=== PATIENT | female | born 1985 ===

== ENCOUNTER 2022-03-02 17:34 | Outpatient (REF) | payer BC, SELFPAY ==
[2022-03-02 16:00] LABS: TSH (W/Ref FT4) 2.65 uIU/mL (0.36-3.74)
[2022-03-10 14:44] LABS: Testosterone, Free 0.69 ng/dL (<0.13-1.03); Testosterone, Total 26 ng/dL (8-60)
== END 2022-03-02 17:35 | disposition home or self-care (01) ==
LOC: NCHCN 17:34
PROVIDERS: Visit Provider Family Medicine
DX: R63.5 Abnormal weight gain (principal); L68.0 Hirsutism
CPT/HCPCS: 84402; 84403; 84443

== ENCOUNTER 2024-03-19 18:13 | Outpatient (REF) | payer OTHER, SELFPAY ==
--- OUTSIDE RECORDS SUMMARY | 2024-03-19 18:17 | XMS_ITS | Encounter Summary ---
[place] [address] Care Team Providers Care Wirer Helper Name Role Phone None Primary Care Provider Unavailabl e Reason for Referral * Diagnostic Test (Routine) - Closed Specialty Diagnoses / Procedures Referred By Contac t Referred To Contact Radiology Diagnoses Ganglioglioma of brain Procedures MRI Brain wwo Contrast (Generic) Valerie Junior MD [facility] [address] [place] [address] Referral ID Status Reason Start Date Expiration Date V isits Requested Visits Authorized [id number] Closed Specialty Service Requested 06/23/2022 12/25/2023 1 1 Reason for Visit * Consultation (Routine) - Closed Specialty Diagnoses / Procedures Referred By Contac t Referred To Contact Neurology Diagnoses Seizure disorder Ganglioglioma Francheska Reich MD [address] [place] [address] [facility] [address] [place] [phone] Referral ID Status Reason Start Date Expiration Date V isits Requested Visits Authorized [id number] Closed Consult, Test & Treat 03/22/2022 03/22/2023 1 1 Encounter Details Date Type Department Care Team (Latest Contact Info) Description 06/23/2022 1:30 PM EDT Office [place] [address] Valerie Junior MD Ganglioglioma of brain; Vitamin D deficiency Social History Tobacco Use Types Packs/Day Years Used Date Smoking Tobacco: Never Smokeless Tobacco: Never Alcohol Use Standard Drinks/Week Comments Yes 0 (1 standard drink = 0.6 oz pur e alcohol) occasional Sex and Gender Information Value Date Recorded Sex Assigned at Not on file Gender Identity Not on file Sexual Orientation Not on file documented as of this encounter Last Filed Vital Signs Vital Sign Reading Time Taken Comments Blood Pressure 129/80 06/23/2022 1:19 PM EDT Pulse 86 06/23/2022 1:19 PM EDT Temperature - - Respiratory Rate - - Oxygen Saturation - - Inhaled Oxygen Concentration - - Weight 106.6 kg (235 lb) 06/23/2022 1:19 PM EDT Height 162.6 cm (5' 4) 06/23/2022 1:19 PM EDT Body Mass Index 40.34 06/23/2022 1:19 PM EDT documented in this encounter Patient Instructions * Patient Instructions* Valerie Junior MD - 06/23/2022 1:30 PM EDT Thank you for seeing us today. We will order an MRI of the brain to be scheduled. We will follow upwith you as needed. We recommend speaking with your therapist about cognitive behavioral therapy (CBT). We will check your vitamin D level. documented in this encounter Progress Notes * Valerie Junior MD - 06/23/2022 1:30 PM EDT Images from the original note were not included. DEPARTMENT OF NEUROLOGY Ep[facility]psy [facility] Patient Name: Isis Rankin PCP :None Date of Visit :06/23/2022 Chief Complaint/Reason for Visit: Re-establish care with [facility] given history of ganglioglioma which recurred s/p 2 resections and need for repeat surveillance imaging. History of Presenting Illness: Ms. Rankin is a 37 y.o. 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 Per chart review, she first was seen in [address] Sanders. She reportedly had no remote priest history of seizures, but in February 1997 (approx. age 12) she had several brief seizures andthen a more prolonged seizure 03/01/97, described as being preceded by a sensation of dizziness, josesito vu, and nausea while at a friend's house, with subsequent confusion as she tried to find the bathroom and trance-like behavior followed by eyelid twitching. All of these seizures were preceded by josesito vu aura +/- nausea and dizziness, and she continued to have aura without progression into altered/loss of awareness. She was first seen at [facility] and then [facility], initially started on PHT and later transitioned to CBZ. MRI showed abnormal signal in the right temporal lobe. She presented to [facility] for evaluation of possible surgical intervention for ?scar tissue vs. tumor. Based on signal abnormality in the inferior aspect of the right posterior temporal lobe, this was felt to be c/w low grade tumor (pilocytic astrocytoma vs DNT vs ganglioglioma). She was referred to Dr. Wisdom and the patient had stereotactic and volumetric resection of the right temporal lobe lesion 07/21/97 with one seizure on post-op day 1 felt to be 2/2 subtherapeutic CBZ level. 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 While there is a literature to suggest an entity called dysembryoplastic neuroepithelial tumor (DNT) without specific glioneuronal component, we view the findings as best fitting with the current WHO category of ganglioglioma. She continued to have several seizures post-operatively. LTG was added to CBZ, eventually LTG was replaced by GBP. She did well clinically for some time but in 1999 she had increased seizure frequency and MRI findings c/f recurrence of tumor. She was started on OXC in addition to CBZ (in lieu of GBP). She underwent repeat resective surgery 02/16/2000 with pathology c/w ganglioglioma. She was seizure free for many years (last in 1999, age 14) on CBZ monotherapy, eventually establishing with Dr. Kelly Soares. She was weaned off CBZ entirely in 2007. She continued to have surveillance MRI scans following her surgery in 2000 (yearly from [id number], also in 2008, 2010, and 2012). She was followed at [facility] until 03/2012 when she saw Wendy Ojeda APRN; at that time she was seizure free and had repeat MRI without concern for tumor recurrence. She has remained stable off of medication since that time. She does not endorse any events concerning for seizure recurrence. She had spent several years living in [facility] but [place] to work remotely from her parent's home. [facility] for repeat MRI. She does report that the process of going through recurrent surgery has brought her anxiety and symptoms consistent with PTSD. She is following with a therapist. She reports that she will be returning to [place] next year. Current antiepileptic medications: None Previous antiepileptic medications: PHT, CBZ, GBP, OXC Risk factors for epilepsy: There is no history of complications or developmental delay. There is no history of stroke, meningitis or encephalitis. There is history of recurrent right temporal ganglioglioma s/p resection x 2 (1997, 2000). There is no history of febrile seizures. There is no family history of epilepsy. There is no history of head trauma. Social History: Job: horticultural manager Living situation: Lives with parents currently Driving: Yes Tobacco: No Alcohol: 2-3 drinks daily (wine or gin & tonic) Recreational drugs: Marijuana rarely planning and contraceptive method: IUD Vitamin D/DEXA: History of low vitamin D Previous work up: # Brain imaging: MRI Brain 04/03/2012 Impression: No evidence of residual or recurrent neoplasm. MRI Brain 03/12/2010 IMPRESSION: No evidence for residual or recurrent disease. MRI Brain 12/16/2008 IMPRESSION: Stable examination without evidence of residual or recurrent tumor. The atrophy involving the right hippocampus is stable in appearance. MRI Brain 09/14/2005 SUMMARY: Status post right temporal tumor resection. There is no evidence of residual or recurrenttumor. MRI Brain 08/26/2004 IMPRESSION: Stable right temporal postsurgical change with no evidence of disease progression detected. MRI Brain 06/24/2003 IMPRESSION: 1) Postoperative change in the inferior right temporal lobe. 2) No evidence of residual or recurrent tumor. MRI Brain 06/11/2002 IMPRESSION: There is abnormal signal in the resection area in the right temporal lobe region seen well on the FLAIR sequence but I do not see any evidence of mass effect or enhancement. MRI Brain 06/08/2001 IMPRESSION: Post surgical changes in the right temporal bone and lobe with thin enhancement at thesurgical margins. Although the enhancement is nonspecific, it does not have the globular shape seenon the previous scans. MRI Brain 02/16/2000 CONCLUSION: Post-operative changes in the right temporal region. MRI Brain 02/16/2000 CONCLUSION: Pre-op MR with fiducials for craniotomy demonstrates probable residual tumor in the middle cranial fossa on the right side. MRI Brain 09/20/1999 IMPRESSION: No change from the prior study of . MRI Brain 12/11/1998 IMPRESSION: Possible interval increase in degree of enhancement since 08/25/98. This may also reflect technique and slice differences between examinations. For this reason, a four month follow-up evaluation is recommended. On the follow-up, 3 mm coronal T1 post-gadolinium enhanced images should be obtained to be utilized as a new baseline. MRI Brain 08/25/1998 IMPRESSION: Residual enhancement in the surgical bed as well as the most medial aspect of the resected area. This is worrisome for the recurrence of tumor in this region. MRI Brain 07/21/1997 CONCLUSION: Minimal residual enhancement in the surgical bed, may be secondary to surgical procedure. Less likely, this may represent a small amount of residual tumor. Repeat imaging will assist in sorting this out. I see no evidence of post-surgical complication at this time. MRI Brain 07/17/1997 CONCLUSION: Nonspecific area of enhancement with diffuse edema in the posterior-most right temporal lobe, suspicous for primary glial tumor. MRS was performed. The lesion is significantly smaller than the voxel size. Allowing for this, there is a slight decrease in MARCOS. The choline to creatine ratio is slightly reversed. Nonspecific MRS would be consistent with tumor, though certainly not a specific spectrum. # EEG: Routine EEG 08/14/2007 INTERPRETATION: This EEG is within normal limits during the awake and sleep states. No epileptiform activity, seizures or temporal slowing was seen. Please correlate clinically. Routine EEG 02/09/2007 INTERPRETATION: This EEG was slightly abnormal because intermitent slowing on the right.No clearlyepilpetic abnromalities were seen. Routine EEG 09/21/2006 INTERPRETATION: This EEG was mildly abnormal because of the intermittent right temporal slowing asmentioned above. Such a finding is consistent with her tumor resection. There were no epileptiform discharges noted on this study. If the clinical suspicion for epilepsy remains high, a repeat EEG with sleep deprivation may increase diagnostic sensitivity. Routine EEG 02/15/2004 INTERPRETATION: This EEG was abnormal because of the presence of bursts of polymorphic theta slowing in the right temporal region noted in awake and sleep states. No epileptic abnormalities were identified. The right temporal slowing would correlate with the prior tumor and resection in that area.While there was no convincing evidence for epilepsy on today's recording, this does not rule out the possiblity of a seizure disorder. Routine EEG 06/25/2003 INTERPRETATION: This EEG was mildly abnormal because of right temporal rhythmic sharp appearing theta and occasional sharp waves over the T4 region. Similar abnormalities have noted in her previous EEGs. Routine EEG 09/20/1999 Impression: This EEG is abnormal and it has some slowing over the right side and particularly the temporal leads. This is quite similar as to what has been noted on her previous EEGs. Routine EEG 07/25/1997 Impression: This EEG is abnormal due to persistent left temporal posterior delta slowing which is most likely due to the removal of the tumor. However, on several occasions also left temporal rhythmic theta activity noted which occasionally also spreads to the right. This finding is consistent with a lowered seizure threshold. No clinical signs were reported throughout the recording. No definitespike wave spike discharges were seen. # EMU admissions: None # Previous epilepsy-related neurosurgical interventions: Right temporal ganglioglioma resection 07/21/1997, repeat resective surgery d/t tumor recurrence 02/16/2000 Review of Systems: A 10-point review of systems was performed which was unremarkable except as mentioned in the HPI. Past Medical History: Patient Active Problem List Diagnosis Code ??? CIS - History of Depression ??? CIS - Seizure Disorder Past Surgical History: No past surgical history on file. Family History: No family history on file. Allergy: Allergies Allergen Reactions ??? Penicillins Hives Medications: Current Outpatient Medications on File Prior to Visit Medication Sig Dispense Refill ??? citalopram (CELEXA) 40 mg Tablet Take 1 tablet by mouth daily. FUTURE PRESCRIPTIONS MUST BE OBTAINED BY PATIENT'S PCP 30 tablet 2 ??? ALBUTEROL SULFATE (VENTOLIN HFA INHL) Inhale 2 puffs into the lungs as needed. ??? FLUTICASONE PROPIONATE (FLOVENT HFA INHL) Inhale 2 puffs into the lungs as needed. No current facility-administered medications on file prior to visit. Seizure Control: 09/30/2014 10:18 AM QEpilepsy Last seizure was: More than 1 year ago Were seizures disabling? Yes Social Factors: 09/30/2014 10:18 AM QEPILEPSY SOCIAL FACTORS Employment status: Yes - Refrigerator Repair Technician Currently driving: No Considering No Review of Systems: 09/30/2014 10:18 AM Review of systems 1. double vision Never 2. headache Never 3. rash Never 4. unsteadiness Never 5. upset stomach, nausea, vomiting Never 6. troubles with gums or teeth Never 7. weight loss or gain Never 8. tremors or shaking Never 9. restlessness Never 10. dizziness Never 11. tiredness/sleepiness Never 12. trouble sleeping Never 13. difficulties concentrating Never 14. feelings of aggression Never 15. depression Rarely 16. thoughts about ending your life Never 17. palpitations or chest pains Never 18. bladder problems Never 19. breathing problems Never Memory and concentration symptoms (QOLIE-31) 09/30/2014 10:19 AM QEPILEPSY QOLIE31 Memory problems None of the time Difficulty reasoning and solving problems None of the time Trouble remembering things people tell None of the time Trouble concentrating on reading None of the time Trouble concentrating on doing one thing at a time None of the time How much do your memory difficulties bother you? 1 - Not at all bothersome QOLIE-31 10 (low scores suggest severe memory symptoms) Depression Score (NDDI-E) 09/30/2014 10:19 AM QEPILEPSY DEPRESSION SCORE Depression Score 8 (scores >15 suggest Major Depression) Quality of Life 09/30/2014 10:19 AM QEPILEPSY QOL Quality of Life (10-Best Quality of Life; 0-Worst Quality of Life) 9 Review of systems: A 10-point review of system was checked and was negative except as mentioned above in the history of present illness. Physical Exam: Vitals: Temp: -- Heart Rate: -- Resp: -- BP: ()/() SpO2: -- Heart Rate from SpO2: -- Gen: awake, alert, NAD, cooperative with exam Respiratory: Normal work of breathing Extremities: Warm, well perfused Neurological exam: Mental state: Awake, alert, oriented to person, place and date. Fund of knowledge adequate. /3 recall. Speech: Normal Cranial nerves: I: Not tested II: Visual field testing notable for upper quadrant deficit OS. Pupils equal and reactive to light bilaterally. III, IV, : EOMs full, no pathological nystagmus. V: Facial sensation normal VII: Facial strength normal. VIII: Hearing normal to finger rub bilaterally. IX, X: Palate movement normal XI: Shoulder shrug normal XII: Tongue movement normal Motor: Strength: Normal 5/5 Fine motor: Normal Tone: Normal Abnormal movements: None Deep tendon reflexes: 2+ Sensation: Touch: Normal Cerebellar: Finger to nose: Normal Heel to chisholm: Normal Other: Not tested Gait: Normal, including stress maneuvers. Assessment / Plan: Ms. Rankin is a pleasant 37 y/o woman with history of recurrent right temporal ganglioglioma s/p resection x2 (1997, 2000 and symptomatic epilepsy that has subsequently resolved (off medication since 2007 without recurrence) who presents with concern for repeat surveillance MRI to assess for recurrence of tumor. Overall she has been quite stable with no clinical signs suggestive of return of epilepsy or other neurologic issues. Neurological exam unremarkable except for superior quadrantanopsia OS which she reports is sequelae of her surgery. Given prior recurrence of tumor it would be reasonable for repeat surveillance MRI since one has not been done since 2012. Will contact the patient with any abnormal result. If MRI is normal, she could likely be seen in 1-2 years for follow up although unclear what her living situation will be. Fornow, will have follow up as needed with potential plan to repeat MRI in ~ 2 years if normal. ShouldMRI show concern for recurrent tumor will place referral to neurosurgery and schedule sooner followup. Recommended the patient discuss doing cognitive behavioral therapy or referral to provider trained in CBT. Given prior history of vitamin D deficiency will check serum level as this can contribute to mood issues. Plan: - MRI Brain w/wout Contrast - If scan is normal, RTC PRN (tentatively ~ 2 years) or sooner if needed - If scan is abnormal, RTC [address] referral to neurosurgery - Check vitamin D level - Recommended discussing CBT with therapist for ?PTSD Valerie Junior MD 06/23/2022 CC: Francheska Reich MD A total of 45 minutes were spent [id number] with the patient obtaining history, performing exam, and in counseling. 15 minutes were spent on day of visit reviewing documentation and in documenting. documented in this encounter Miscellaneous Notes * Addendum Note - Valerie Junior MD - 06/23/2022 1:30 PM EDTAddended by: VALERIE JUNIOR on: 06/24/2022 07:46 PM Modules accepted: Orders documented in this encounter Plan of Treatment Not on file documented as of this encounter Results * MRI Brain wwo Contrast (Generic) (12/12/2022 8:55 AM EST) Anatomical Region Laterality Modality Head Magnetic Resonan ce Impressions 12/12/2022 2:58 PM EST Stable right temporal lobe postoperative changes. No residual recurrent tumor or intracranial metastasis. Thank you for letting us participate in the care of this patient. ??If you are a health care provider and have any questions regarding this report, please contact the number below. ??For patients who have questions please contact the health respiratory care practitioner that requested your imaging first. ? Electronically signed by: Kayce Bolton MD, [facility] ([phone]), at 12/12/2022 2:58 PM Narrative 12/12/2022 2:58 PM EST EXAMINATION: MRI BRAIN WWO CONTRAST (GENERIC) CLINICAL HISTORY: Brain/SAXOPHONE PLAYER neoplasm, monitor Patient with history of R temporal ganglioglioma s/p resection 1997 kun recurred in 2000, prior surveillance scans, re-evaluate for any recurrence TECHNIQUE: MRI of the brain was performed before and after the intravenous administration of 20cc Dotarem. COMPARISON: MRI brain April 03, 2012 FINDINGS: Postoperative changes of remote right temporal occipital craniotomy, as on prior examination. No significant change in right inferior temporal lobe resection cavity, are likely postoperative encephalomalacia of the lateral right superior temporal gyrus. New evidence of residual or recurrent tumor. There is punctate nonspecific right frontal subcortical white matter focus. Otherwise, no abnormal brain parenchymal signal, susceptibility, diffusion or enhancement. No abnormal leptomeningeal enhancement. No midline shift, mass effect, hydrocephalus or extra-axial collection. Expected intracranial vascular flow voids are preserved. Cerebral aqueduct, foramen magnum and basilar cisterns are patent. Pituitary gland is normal. No aggressive osseous lesions. Mild bilateral ethmoid and right maxillary sinus mucosal thickening left maxillary sinus mucus retention cyst. There is moderate right mastoid fluid. Procedure Note Kayce Bolton MD - 12/12/2022 EXAMINATION: MRI BRAIN WWO CONTRAST (GENERIC) CLINICAL HISTORY: Brain/SAXOPHONE PLAYER neoplasm, monitor Patient with history of R temporal ganglioglioma s/p resection 1997 tharecurred in 2000, prior surveillance scans, re-evaluate for any recurrence TECHNIQUE: MRI of the brain was performed before and after the intravenousadministration of 20cc Dotarem. COMPARISON: MRI brain April 03, 2012 FINDINGS: Postoperative changes of remote right temporal occipital craniotomy, as onprior examination. No significant change in right inferior temporal loberesection cavity, are likely postoperative encephalomalacia of the lateral rightsuperior temporal gyrus. New evidence of residual or recurrent tumor. There is punctate nonspecific right frontal subcortical white matterfocus. Otherwise, no abnormal brain parenchymal signal, susceptibility, diffusionor enhancement. No abnormal leptomeningeal enhancement. No midline shift,mass effect, hydrocephalus or extra-axial collection. Expected intracranial vascular flow voids are preserved. Cerebralaqueduct, foramen magnum and basilar cisterns are patent. Pituitary gland isnormal. No aggressive osseous lesions. Mild bilateral ethmoid and right maxillarysinus mucosal thickening left maxillary sinus mucus retention cyst. There ismoderate right mastoid fluid. IMPRESSION Stable right temporal lobe postoperative changes. No residual recurrenttumor or intracranial metastasis. Thank you for letting us participate in the care of this patient. If youare a health care provider and have any questions regarding this report,please contact the number below. For patients who have questions please contactthe health respiratory care practitioner that requested your imaging first. 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
--- OUTSIDE RECORDS SUMMARY | 2024-03-19 18:17 | XMS_ITS | Encounter Summary ---
[place] [address] Care Team Providers Care Manager Field Name Role Phone None Primary Care Provider Unavailabl e Encounter Details Date Type Department Care Team (Latest Contact Info) Description 06/23/2022 Travel Social History Tobacco Use Types Packs/Day Years Used Date Smoking Tobacco: Never Smokeless Tobacco: Never Alcohol Use Standard Drinks/Week Comments Yes 0 (1 standard drink = 0.6 oz pur e alcohol) occasional Sex and Gender Information Value Date Recorded Sex Assigned at Not on file Gender Identity Not on file Sexual Orientation Not on file documented as of this encounter Plan of Treatment Not on file documented as of this encounter Visit Diagnoses Not on filedocumented in this encounter Care Teams Manager Field Relationship Specialty Start Date End Date None None PCP - General 09/30/14 documented as of this encounter
--- OUTSIDE RECORDS SUMMARY | 2024-03-19 18:17 | XMS_ITS | Encounter Summary ---
[place] [address] Care Team Providers Care Casing Crew Name Role Phone None Primary Care Provider Unavailabl e Encounter Details Date Type Department Care Team (Latest Contact Info) Description 06/22/2022 Travel Social History Tobacco Use Types Packs/Day [...] on filedocumented in this encounter Care Teams Casing Crew Relationship Specialty Start Date End Date None None PCP - General 09/30/14 documented as of this encounter
--- OUTSIDE RECORDS SUMMARY | 2024-03-19 18:17 | XMS_ITS | Clinical Summary ---
Author Organization [facility] [place] [address] Care Team Providers Care Special Skills Officer Name Role Phone None Primary Care Provider Unavailabl e Allergies Active Allergy Reactions Criticality Noted Date Comments Penicillins Hives Medications Medication Sig Dispensed Refills Start Date End Date Status ALBUTEROL SULFATE (VENTOLIN HFA INHL) Inhale 2 puffs into the lungs as needed. Active FLUTICASONE PROPIONATE (FLOVENT HFA INHL) Inhale 2 puffs into the lungs as needed. Active sertraline (Zoloft) 100 mg tablet Take 200 mg by mouth daily. Active traZODone (Desyrel) 50 mg tablet Take 50 mg by mouth nightly. Active ARIPiprazole (Abilify) 2 mg tablet Take 1 mg by mouth daily. Active lisdexamfetamine (Vyvanse) 30 mg capsule Take 30 mg by mouth every morning. 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, S/P resection in 1997 and in 2000, now seizure free off medicine Social History Tobacco Use Types Packs/Day Years Used Date Smoking Tobacco: Never Smokeless Tobacco: Never Alcohol Use Standard Drinks/Week Comments Yes 0 (1 standard drink = 0.6 oz pur e alcohol) occasional Sex and Gender Information Value Date Recorded Sex Assigned at Not on file Gender Identity Not on file Sexual Orientation Not on file Last Filed Vital Signs Vital Sign Reading [...] Mass Index 40.34 06/23/2022 1:19 PM EDT Plan of Treatment Health Maintenance Due Date Last Done Comments HIV screen 04/23/2005 Hepatitis C Screening 04/23/2005 Lipid Screening 04/23/2005 Hepatitis B vaccine (0-59 yrs) (1) 04/23/2006 Tetanus/Diphtheria/Pertussis Vaccines (1 - Tdap) 04/23 HPV test 04/23/2017 PAP Smear 04/23/2017 Covid-19 Vaccine (1 - 2023- season) 2023 Influenza (Flu) vaccine (1 o f 1 - Influenza standard series) 10/08/2023 Care Teams Special Skills Officer Relationship Specialty Start Date End Date None None PCP - General 09/30/14
--- OUTSIDE RECORDS SUMMARY | 2024-03-19 18:17 | XMS_ITS | Encounter Summary ---
[place] [address] Care Team Providers Care Marketing Information Manager Name Role Phone None Primary Care Provider Unavailabl e Encounter Details Date Type Department Care Team (Latest Contact Info) Description 12/12/2022 Travel Social History Tobacco Use Types Packs/Day [...] on filedocumented in this encounter Care Teams Marketing Information Manager Relationship Specialty Start Date End Date None None PCP - General 09/30/14 documented as of this encounter
--- OUTSIDE RECORDS SUMMARY | 2024-03-19 18:17 | XMS_ITS | Encounter Summary ---
[place] [address] Care Team Providers Care Materials Planner Name Role Phone None Primary Care Provider Unavailabl e Reason for Referral * Consultation (Routine) - Closed Specialty Diagnoses / Procedures Referred By Contac t Referred To Contact Neurology Diagnoses Seizure disorder Ganglioglioma Francheska Reich MD [address] [place] [address] [facility] [address] [place] [phone] Referral ID Status Reason Start Date Expiration Date V isits Requested Visits Authorized [id number] Closed Consult, Test & Treat 03/22/2022 03/22/2023 1 1 Encounter Details Date Type Department Care Team (Late st Contact Info) Description 03/22/2022 Transcribe Orders eDH Incoming Referrals [phone] Francheska Reich MD [address] [place] [address] Seizure disorder; Ganglioglioma Social History Tobacco Use Types Packs/Day Years Used Date Smoking Tobacco: Never Smokeless Tobacco: Never Alcohol Use Standard Drinks/Week Comments Yes 0 (1 standard drink = 0.6 oz pur e alcohol) occasional Sex and Gender Information Value Date Recorded Sex Assigned at Not on file Gender Identity Not on file Sexual Orientation Not on file documented as of this encounter Plan of Treatment Scheduled Referrals Name Type Priority Associated Diagnoses Orde r Schedule Referral to Neurology Outpatient Referral Routine Seizure disorder Ganglioglioma Ordered: 03/22/2022 documented as of this encounter Visit Diagnoses Diagnosis Seizure disorder Unspecified epilepsy without mention of intractable epilepsy Ganglioglioma Neoplasm of uncertain behavior, site unspecified documented in this encounter Care Teams Materials Planner Relationship Specialty Start Date End Date None None PCP - General 09/30/14 documented as of this encounter
--- OUTSIDE RECORDS SUMMARY | 2024-03-19 18:17 | XMS_ITS | Encounter Summary ---
[place] [address] Care Team Providers Care Glue Maker Bone Name Role Phone None Primary Care Provider Unavailabl e Reason for Referral * Diagnostic Test (Routine) - Closed Specialty Diagnoses / Procedures Referred By Contac t Referred To Contact Radiology Diagnoses Ganglioglioma of brain Procedures MRI Brain wwo Contrast (Generic) Jose Field MD [facility] NEUROLOGY [place], [place] [id number] [place] [phone] Referral ID Status Reason Start Date Expiration Date V isits Requested Visits Authorized [id number] Closed Specialty Service Requested 06/23/2022 12/25/2023 1 1 Reason for Visit * Diagnostic Test (Routine) - Closed Specialty Diagnoses / Procedures Referred By Contac t Referred To Contact Radiology Diagnoses Ganglioglioma of brain Procedures MRI Brain wwo Contrast (Generic) Jose Field MD [facility] [place] [address] [place] [address] [place] [address] Referral ID Status Reason Start Date Expiration Date V isits Requested Visits Authorized [id number] Closed Specialty Service Requested 06/23/2022 12/25/2023 1 1 Encounter Details Date Type Department Care Team (Latest Contact Info) Description 12/12/2022 7:46 AM EST - 12/12/2022 11:59 PM EST Hospital [place] [address] Jose Field MD Ganglioglioma of brain Discharge Disposition: Home Social History Tobacco Use Types Packs/Day Years Used Date Smoking Tobacco: Never Smokeless Tobacco: Never Alcohol Use Standard Drinks/Week Comments Yes 0 (1 standard drink = 0.6 oz pur e alcohol) occasional Sex and Gender Information Value Date Recorded Sex Assigned at Not on file Gender Identity Not on file Sexual Orientation Not on file documented as of this encounter Medications at Time of Discharge Medication Sig Dispensed Refills Start Date End Date sertraline (Zoloft) 100 mg tablet Take 200 mg by mouth daily. traZODone (Desyrel) 50 mg tablet Take 50 mg by mouth nightly. ARIPiprazole (Abilify) 2 mg tablet Take 1 mg by mouth daily. lisdexamfetamine (Vyvanse) 30 mg capsule Take 30 mg by mouth every morning. ALBUTEROL SULFATE (VENTOLIN HFA INHL) Inhale 2 puffs into the lungs as needed. FLUTICASONE PROPIONATE (FLOVENT HFA INHL) Inhale 2 puffs into the lungs as needed. documented as of this encounter Plan of Treatment Not on file documented as of this encounter Procedures Procedure Name Priority Date/Time Associated Diagnosis Comments MRI BRAIN WWO CONTRAST (GENERIC) Routine 12/12/2022 8:55 AM EST Ganglioglioma of brain documented in this encounter Results * MRI Brain wwo [...] who have questions please contact the health rn managed care that requested your imaging first. ? Electronically signed by: Kayce Bolton MD, [facility] ([phone]), at 12/12/2022 2:58 PM Narrative 12/12/2022 2:58 PM EST EXAMINATION: MRI BRAIN WWO CONTRAST (GENERIC) CLINICAL HISTORY: Brain/OIL WELL DIRECTIONAL SURVEYOR neoplasm, monitor Patient with history of R [...] MRI BRAIN WWO CONTRAST (GENERIC) CLINICAL HISTORY: Brain/OIL WELL DIRECTIONAL SURVEYOR neoplasm, monitor Patient with history of R [...] patients who have questions please contactthe health rn managed care that requested your imaging first. 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
--- OUTSIDE RECORDS SUMMARY | 2024-03-19 18:17 | XMS_ITS | Encounter Summary ---
[place] [address] Care Team Providers Care Ag Equipment Field Service Technician Name Role Phone None Primary Care Provider Unavailabl e Reason for Visit * Reason Onset Date Comments Results 01/11/2023 Encounter Details Date Type Department Care Team (Late st Contact Info) Description 01/11/2023 [place] [phone] Unknown None Results Social History Tobacco Use Types Packs/Day Years Used Date Smoking Tobacco: Never Smokeless Tobacco: Never Alcohol Use Standard Drinks/Week Comments Yes 0 (1 standard drink = 0.6 oz pur e alcohol) occasional Sex and Gender Information Value Date Recorded Sex Assigned at Not on file Gender Identity Not on file Sexual Orientation Not on file documented as of this encounter Miscellaneous Notes * Telephone Encounter - Karina Freeman RN - 01/11/2023 2:38 PM EST Copied from [facility] #[id number]. Topic: Specialty Dept CRMs - Test Results >> Jan 11, 2023 1:56 PM Jose Alejandro Jeffers wrote: Test Results Request Specialist: Jose Field MD Relationship (if other than patient-full name): Isis Rankin Ordering Provider: Jose Field MD Type of Test: MRI BRAIN WWO Date of Test: 12/12/22 Where Was This Test Performed: [facility] [place] Patient stated, she has not received a phone call regarding her MRI results. Please call patient [phone] to discuss results. documented in this encounter Plan of Treatment Not on file documented as of this encounter Visit Diagnoses Not on filedocumented in this encounter Care Teams Ag Equipment Field Service Technician Relationship Specialty Start Date End Date None None PCP - General 09/30/14 documented as of this encounter
--- OUTSIDE RECORDS SUMMARY | 2024-03-19 18:17 | XMS_ITS | Encounter Summary ---
[place] [address] Care Team Providers Care Waiter/Waitress Club Name Role Phone None Primary Care Provider Unavailabl e Encounter Details Date Type Department Care Team (Late st Contact Info) Description 11/01/2022 [place] [address] Taylor Britton RN Social History Tobacco Use Types Packs/Day Years [...] encounter Miscellaneous Notes * Telephone Encounter - Taylor Britton RN - 11/01/2022 9:25 AM EDT TC to schedule the MRI (brain) that was ordered on 06/23/[address] Field. Pt connected with the MRI Dept to schedule imaging. documented in this encounter Plan of Treatment Not on file documented as of this encounter Visit Diagnoses Not on filedocumented in this encounter Care Teams Waiter/Waitress Club Relationship Specialty Start Date End Date None None PCP - General 09/30/14 documented as of this encounter
--- OUTSIDE RECORDS SUMMARY | 2024-03-19 18:18 | XMS_ITS | Encounter Summary ---
[place] [address] Care Team Providers Care Paper And Pulp Mill Operator Name Role Phone None Primary Care Provider Unavailabl e Reason for Visit * Reason Onset Date Comments Medication Refill 05/06/2015 Encounter Details Date Type Department Care Team (Late st Contact Info) Description 05/06/2015 [place] [address] Kelly Soares MD [facility] [place] [address] Medication Refill Social History Tobacco Use Types Packs/Day Years [...] encounter Miscellaneous Notes * Telephone Encounter - Olga Romero RN - 05/06/2015 1:02 PM EDT I phoned patient. rx was done in January but pt has changed pharmacies and [place] law doesn't allow rxtransfers between pharmacies. Pt still has not seen a psychiatrist. She states that she just got new insurance and will start looking now. Pt advised that pcp or psychiatrist should be filling her celexa for her. We will send rx to new pharmacy but pt instructed to actively search for psychiatrist per previous telephone note. Plan: as above and pt agrees with plan and verbalizes understanding. * Telephone Encounter - Kita Hernandez - 05/06/2015 12:15 PM EDT Name of Med: citalopram CELEXA Strength of Pills: 40mg tablet Dosing Directions: take 1 tablet by mouth daily 30 or 90 Day: 30 Pharmacy: [facility] Last Appointment: 09/30/2014 Next Appointment:none Is Patient out of Medication?: YES documented in this encounter Plan of Treatment Not on file documented as of this encounter Visit Diagnoses Not on filedocumented in this encounter Care Teams Paper And Pulp Mill Operator Relationship Specialty Start Date End Date None None PCP - General 09/30/14 documented as of this encounter
--- OUTSIDE RECORDS SUMMARY | 2024-03-19 18:18 | XMS_ITS | Encounter Summary ---
[place] [address] Care Team Providers Care General Practitioner Name Role Phone None Primary Care Provider Unavailabl e Reason for Visit * Reason Onset Date Comments Referral 03/22/2022 Neurology Encounter Details Date Type Department Care Team (Late st Contact Info) Description 03/22/2022 [place] [phone] Unknown None Referral (Neurology ) Social History Tobacco Use Types Packs/Day Years [...] encounter Miscellaneous Notes * Telephone Encounter - Stanley Denny - 03/22/2022 9:57 AM EST Patient calling in: Caller: Isis Rankin If not PT/Relation to PT: patient Best number to reach caller: [phone] Reason for the Call: - To check on the status of their referral: If not, what is the reason for their call: n/a Previous Neurology Information Questions: Has the patient seen another Neurologist: Yes If yes, when and where: 2014 [facility] Has the patient had any imaging done: Yes If yes, when and where: 2012 [facility] documented in this encounter Plan of Treatment Not on file documented as of this encounter Visit Diagnoses Not on filedocumented in this encounter Care Teams General Practitioner Relationship Specialty Start Date End Date None None PCP - General 09/30/14 documented as of this encounter
--- OUTSIDE RECORDS SUMMARY | 2024-03-19 18:18 | XMS_ITS | Encounter Summary ---
Author Organization [facility] [place] [address] Care Team Providers Care Retail Loan Originator Assistant Name Role Phone None Primary Care Provider Unavailabl e Reason for Visit * Reason Onset Date Comments Medication Refill 01/13/2015 Med Refill Cathy nge Encounter Details Date Type Department Care Team (Late st Contact Info) Description 01/13/2015 [place]phone [place] [address] Kelly Soares MD [facility] [place] [address] Medication Refill (Med Refill Change) Social History Tobacco Use Types Packs/Day Years [...] Telephone Encounter - Olga Romero RN - 01/14/2015 5:00 PM EST Per Wendy Ojeda VICTIM ADVOCATE: looks like this is what Dr. Soares wanted her to do. We can renew the 40mg and she should take it consistently. She should have her PCP do an EKG and she should look for a psychiatrist in [place] I phoned pt back and reviewed above per Wendy Ojeda. Pt doesn't have a PCP but states she will nowobtain one and have EKG done as soon as she can. She is also actively looking for psychiatrist. Newrx generated for provider review and signature. Plan: as above and pt agrees with plan and verbalizes understanding. * Telephone Encounter - Olga Romero RN - 01/14/2015 12:13 PM EST Per Wendy Ojeda APRN: looks like this is what Dr. Soares wanted her to do. We can renew the 40mg and she should take it consistently. She should have her PCP do an EKG and she should look for a psychiatrist in [place] I attempted to phone pt regarding above instruction per Wendy Ojeda APRN. There was no answer. Message left on voice mail to call back [phone]. * Telephone Encounter - Olga Romero RN - 01/13/2015 5:19 PM EST Last visit 09/30/14 Next visit 01/26/15 I phoned pt back. She had been taking celexa 60 mg daily. Her insurance will not pay for 3 - 20 mg capsules of celexa per day. She would need a 40 mg capsule and 20 mg capsule. She states that this has been a problem for a little while so has not consistently taken celexa every day but when she does take it is is 60 mg. I reviewed note from 09/30/[address] Soares which she recommends decreasing dose of celexa to 40 mg daily. She admits she is nervous to do this. She states in [place] a PCP can't prescribe celexa that she must see a psychiatrist. She has been instructed/encouraged during this call to actively look for a psychiatrist. She states Dr. Soares prescribed her the celexa for a year and wonders if the new rx can also be done for a year so she can get scheduled with a psychiatrist. She would like to know if the provider still recommends decreasing celexa to 40 mg daily as well. Assessment and Plan: - Epilepsy: no seizures and is off antiepileptic medications - Ganglioglioma: We will obtain another MRI scan and see whether there is recurrence of the ganglioglioma. If there is no change in the postoperative tissue then no further follow-up scans are necessary. - Depression: The patient is on Celexa for depression. She has been on that think 18 years old. Sheseems to do well on that. However she is still on high dose. The cardiac side effects of Celexa at higher doses were discussed with the patient. It was recommended that she decreases the dose to 40 mg a day. The patient wanted to attempt this. She wanted to follow up with a primary care physician in [facility]. Current Outpatient Prescriptions on File Prior to Visit Medication Sig Dispense Refill ??? citalopram (CELEXA) 20 mg Tablet Take 3 tablets by mouth daily. 90 tablet 11 ??? ALBUTEROL SULFATE (VENTOLIN HFA INHL) Inhale 2 puffs into the lungs as needed. ??? FLUTICASONE PROPIONATE (FLOVENT HFA INHL) Inhale 2 puffs into the lungs as needed. No current facility-administered medications on file prior to visit. Plan: I will forward to Wendy Ojeda for review/recommendation in absence of Dr. Soares. * Telephone Encounter - Cierra Baker - 01/13/2015 12:06 PM EST Patient called in stating her insurance company is requesting that the patient get prescribed the 20 mg Celexa for 1 year and the 40 mg Celexa for 1 year. Patient states her insurance company will not approve her for the 90 tablets a month for the 20 mg tablets. Patient would like a call back to clarify. documented in this encounter Plan of Treatment Not on file documented as of this encounter Visit Diagnoses Not on filedocumented in this encounter Care Teams Retail Loan Originator Assistant Relationship Specialty Start Date End Date None None PCP - General 09/30/14 documented as of this encounter
--- OUTSIDE RECORDS SUMMARY | 2024-03-19 18:18 | XMS_ITS | Encounter Summary ---
Author Organization [facility] [place] [address] Care Team Providers Care Product Development Worker Name Role Phone None Primary Care Provider Unavailabl e Reason for Visit * Reason Onset Date Comments Medication Refill 10/05/2015 Encounter Details Date Type Department Care Team (Late st Contact Info) Description 10/05/2015 [place] [address] Kelly Soares MD [facility] [address] Social History Tobacco Use Types Packs/Day Years [...] Telephone Encounter - Olga Romero RN - 10/05/2015 12:28 PM EDT I phoned and spoke with pt. She had rx transferred from [place] to [place] so she lost her last 2 refills. She states she will be seeing new PCP soon and will have them take over prescription but needs a rx in the mean time. New rx with 2 refills generated for provider review and signature. Note on rx indicates that pt will need to get future prescriptions from her PCP. Plan: as above and pt agrees with plan and verbalizes understanding. * Telephone Encounter - Jose G Shirley - 10/05/2015 10:46 AM EDT Patient stated that she transferred this medication to [place] from [place] she lost the last two refills. Patient stated that she has an upcoming appointment with her PCP. Name of Med: citalopram Strength of Pills: 40 mg Dosing Directions: Take 1 tablet by mouth daily. - Oral 30 or 90 Day: 30 Pharmacy: [facility] [address] [place] [address] Last Appointment: 09/30/14 Next Appointment: not scheduled. Is Patient out of Medication?: no documented in this encounter Plan of Treatment Not on file documented as of this encounter Visit Diagnoses Not on filedocumented in this encounter Care Teams Product Development Worker Relationship Specialty Start Date End Date None None PCP - General 09/30/14 documented as of this encounter
--- OUTSIDE RECORDS SUMMARY | 2024-03-19 18:18 | XMS_ITS | Encounter Summary ---
[place] [address] Care Team Providers Care Purchasing/Receiving Name Role Phone None Primary Care Provider Unavailabl e Reason for Visit * Reason Onset Date Comments Medication Refill 05/06/2015 Encounter Details Date Type Department Care Team (Late st Contact Info) Description 05/06/2015 [place] [address] Kelly Soares MD [facility] [place] [address] Social History Tobacco Use Types Packs/Day Years [...] on filedocumented in this encounter Care Teams Purchasing/Receiving Relationship Specialty Start Date End Date None None PCP - General 09/30/14 documented as of this encounter
--- OUTSIDE RECORDS SUMMARY | 2024-03-19 18:18 | XMS_ITS | Encounter Summary ---
[place] [address] Care Team Providers Care Forestry Support Specialist Name Role Phone None Primary Care Provider Unavailabl e Reason for Visit * Reason Onset Date Comments Medication Refill 01/14/2015 Encounter Details Date Type Department Care Team (Late st Contact Info) Description 01/14/2015 Ref[place] [address] Wendy Ojeda, ESL PROFESSOR Social History Tobacco Use Types Packs/Day Years [...] on filedocumented in this encounter Care Teams Forestry Support Specialist Relationship Specialty Start Date End Date None None PCP - General 09/30/14 documented as of this encounter
--- OUTSIDE RECORDS SUMMARY | 2024-03-19 18:18 | XMS_ITS | Encounter Summary ---
[place] [address] Care Team Providers Care Drywall Carrier Name Role Phone None Primary Care Provider Unavailabl e Reason for Visit * Reason Onset Date Comments Medication Refill 10/05/2015 Encounter Details Date Type Department Care Team (Late st Contact Info) Description 10/05/2015 [place] [address] Wendy Ojeda, WARP STARTER Social History Tobacco Use Types Packs/Day Years [...] on filedocumented in this encounter Care Teams Drywall Carrier Relationship Specialty Start Date End Date None None PCP - General 09/30/14 documented as of this encounter
--- OUTSIDE RECORDS SUMMARY | 2024-03-19 18:19 | XMS_ITS | Encounter Summary ---
[place] [address] Care Team Providers Care Rn Hematology Name Role Phone Olga Kramer MD Primary Care Provider [phone] Encounter Details Date Type Department Care Team (Late st Contact Info) Description 04/03/2012 2:30 PM EST - 04/03/2012 11:59 PM [facility] [place] [address] Ganglioglioma Social History Tobacco Use Types Packs/Day Years Used Date Smoking Tobacco: Never Smokeless Tobacco: Never Alcohol Use Standard Drinks/Week Comments Yes 6 (1 standard drink = 0.6 oz pur e alcohol) Sex and Gender Information Value Date Recorded Sex Assigned at Not on file Gender Identity Not on file Sexual Orientation Not on file documented as of this encounter Medications at Time of Discharge Medication Sig Dispensed Refills Start Date End Date ALBUTEROL SULFATE (VENTOLIN HFA INHL) Inhale 2 puffs into the lungs as needed. FLUTICASONE PROPIONATE (FLOVENT HFA INHL) Inhale 2 puffs into the lungs as needed. citalopram (CELEXA) 20 mg tablet Take 60 mg by mouth daily. 09/30/2014 documented as of this encounter Miscellaneous Notes * Miscellaneous - Provider, Judie - 04/30/2012 5:29 AM EDT documented in this encounter Plan of Treatment Not on file documented as of this encounter Procedures Procedure Name Priority Date/Time Associated Diagnosis Comments MRI BRAIN WWO CONTRAST (GENERIC) Routine 04/03/2012 3:12 PM EST Ganglioglioma documented in this encounter Results * MRI brain with/WO contrast (04/03/2012 3:12 PM EST) Anatomical Region Laterality Modality Head Magnetic Resonan ce 04/03/2012 3:12 PM EST Narrative 04/03/2012 6:27 PM EST Examination MR BRAIN W/WO CONTRAST Clinical History previous gangioglioma follow up GANGLIOGLIOMA Comparison MRI of brain of 03/12/2010. Technique MRI of the brain was performed both before and after the administration of 17 mL Magnevist. Findings The area of tissue loss and T2 prolongation in the right lateral and inferior temporal lobes shows no interval alteration. ??There is no new mass, abnormal enhancement, or signal abnormality. ??Ventricles and sulci show no change in size or configuration. ??Intracranial flow voids show no abnormality. ??There is persistent opacification of the maxillary sinuses and increased opacification of left ethmoid air cells and decreased opacification of the right frontal sinus. Impression 1. ??No evidence of residual or recurrent neoplasm. Procedure Note Car Godoy MD - 04/03/2012 Examination MR BRAIN W/WO CONTRAST Clinical History previous gangioglioma follow up GANGLIOGLIOMA Comparison MRI of brain of 03/12/2010. Technique MRI of the brain was performed both before and after the administration of17 mL Magnevist. Findings The area of tissue loss and T2 prolongation in the right lateral andinferior temporal lobes shows no interval alteration. There is no new mass,abnormal enhancement, or signal abnormality. Ventricles and sulci show no changein size or configuration. Intracranial flow voids show no abnormality.There is persistent opacification of the maxillary sinuses and increasedopacification of left ethmoid air cells and decreased opacification of the right frontal sinus. Impression 1. No evidence of residual or recurrent neoplasm. Kelly Soares MD IMG MRI ORDERABLES documented in this encounter Visit Diagnoses Diagnosis Ganglioglioma Neoplasm of uncertain behavior, site unspecified documented in this encounter Administered Medications Inactive Administered Medications - up to 3 most recent administrations Medication Order MAR Action Action Date Dose Rate Site gadopentetate dimeglumine (MAGNEVIST) injection 17 mL 17 mL (0.2 mL/kg/dose ? 83.9 kg Order-specific weight), Intravenous, ONCE PRN, Per Protocol, Starting on Mon04/03/12 at 0612, 1 dose, Until Mon04/03/12 at 1458 Given 04/03/2012 2:58 PM EST 17 mLs documented in this encounter Care Teams Rn Hematology Relationship Specialty Start Date End Date Olga Kramer MD PCP - General 12/29/09 09/29/14 documented as of this encounter
--- OUTSIDE RECORDS SUMMARY | 2024-03-19 18:19 | XMS_ITS | Encounter Summary ---
[place] [address] Care Team Providers Care Beta Tester Name Role Phone None Primary Care Provider Unavailabl e Encounter Details Date Type Department Care Team (Late st Contact Info) Description 09/30/2014 10:15 AM EDT [place] [id number] Kelly Soares MD [facility] [place] [address] Ganglioglioma Discharge Disposition: Home Social History Tobacco Use [...] Sign Reading Time Taken Comments Blood Pressure 121/78 09/30/2014 10:16 AM EDT Pulse 94 09/30/2014 10:16 AM EDT Temperature - - Respiratory Rate - - Oxygen Saturation - - Inhaled Oxygen Concentration - - Weight 102.1 kg (225 lb) 09/30/2014 10:16 AM EDT Height 165.1 cm (5' 5) 09/30/2014 10:16 AM EDT Body Mass Index 37.44 09/30/2014 10:16 AM EDT documented in this encounter Progress Notes * Kelly Soares MD - 09/30/2014 10:47 AM EDT 09/30/2014 [facility] COMPREHENSIVE EPILEPSY PROGRAM INITIAL CONSULTATION Patient name: Isis Rankin : 1985 Patient came to the office alone. Patient Care Team: None as PCP - General None as PCP - Regular Care Provider The patient was seen previously by me. 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 The patient is doing well, she has had no seizures and no complaints. She is still taking the Celexa, but had difficulties obtaining the prescription. She tolerates the 60 mg without difficulties. Living in [facility], works in [employer], home visiting in [place] right now. Previous Epilepsy diagnostic work up: MRI: last MRI 2012 without recurrence PMH: Past Medical History Diagnosis Date ??? 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 h/o epilepsy no seizures since > 5 years ??? Depression Current Meds: Medications 09/30/14 1018 Medication Sig Taking? ALBUTEROL SULFATE (VENTOLIN HFA INHL) Inhale 2 puffs into the lungs as needed. Yes FLUTICASONE PROPIONATE (FLOVENT HFA INHL) Inhale 2 puffs into the lungs as needed. Yes citalopram (CELEXA) 20 mg tablet Take 60 mg by mouth daily. Yes Allergies: Allergies Allergen Reactions ??? Penicillins Hives Social History: History Social History ??? Marital Status: Single Spouse Name: N/A Number of Children: N/A ??? Years of Education: N/A Occupational History ??? Not on file. Social History Main Topics ??? Smoking status: Never Smoker ??? Smokeless tobacco: Never Used ??? Alcohol Use: Yes Comment: occasional ??? Drug Use: No ??? Sexual Activity: Not on file Comment: deferred Other Topics Concern ??? Not on file Social History Narrative 2015: Lives in [facility], works in sales. Single. ROS and other subjective information: @Seizure Control: QEpilepsy 09/30/2014 Last seizure was: More than 1 year ago Were seizures disabling? Yes Social Factors: QEPILEPSY SOCIAL FACTORS 09/30/2014 Employment status: Yes - [employer] Currently driving: No Considering No Review of Systems: Review of systems 09/30/2014 1. double vision Never 2. headache Never [...] problems Never Memory and concentration symptoms (QOLIE-31) QEPILEPSY QOLIE31 09/30/2014 Memory problems None of the time Difficulty [...] suggest severe memory symptoms) Depression Score (NDDI-E) QEPILEPSY DEPRESSION SCORE 09/30/2014 Depression Score 8 (scores >15 suggest Major Depression) Quality of Life QEPILEPSY QOL 09/30/2014 Quality of Life (10-Best Quality of Life; 0-Worst Quality of Life) 9 Objective: Blood pressure 121/78, pulse 94, height 165.1 cm (5' 5), weight 102.059 kg (225 lb). Awake, alert, EOMI, no mouth lesions, no peripheral edema, no clear skin lesions Psychiatric: normal affect Gait and station: normal Romberg, normal gait, tandem gait intact, Assessment and Plan: - Epilepsy: no seizures [...] up with a primary care physician in [facility]. This note was created using voice recognition software. It was reviewed for major content. However,there may be multiple small discrepancies and errors due to the voice recognition aspects of the software. documented in this encounter Plan of Treatment Not on file documented as of this encounter Visit Diagnoses Diagnosis Ganglioglioma Neoplasm of uncertain behavior, site unspecified documented in this encounter Care Teams Beta Tester Relationship Specialty Start Date End Date None None PCP - General 09/30/14 documented as of this encounter
--- OUTSIDE RECORDS SUMMARY | 2024-03-19 18:19 | XMS_ITS | Encounter Summary ---
[place] [address] Care Team Providers Care Gas Plumber Name Role Phone None Primary Care Provider Unavailabl e Encounter Details Date Type Department Care Team (Late st Contact Info) Description 09/30/2014 [place] [address] Kita Hernandez Social History Tobacco Use Types Packs/Day Years [...] on filedocumented in this encounter Care Teams Gas Plumber Relationship Specialty Start Date End Date None None PCP - General 09/30/14 documented as of this encounter
--- OUTSIDE RECORDS SUMMARY | 2024-03-19 18:19 | XMS_ITS | Encounter Summary ---
[place] [address] Care Team Providers Care Food Cart Attendant Name Role Phone Olga Kramer MD Primary Care Provider [phone] Encounter Details Date Type Department Care Team (Late st Contact Info) Description 09/20/2011 [place] [address] Kelly Soares MD [facility] [place] [address] Social History Tobacco Use Types Packs/Day Years Used Date Smoking Tobacco: Never Assessed Sex and Gender Information Value Date Recorded Sex Assigned at Not on file Gender Identity Not on file Sexual Orientation Not on file documented as of this encounter Plan of Treatment Not on file documented as of this encounter Visit Diagnoses Not on filedocumented in this encounter Care Teams Food Cart Attendant Relationship Specialty Start Date End Date Olga Kramer MD PCP - General 12/29/09 09/29/14 documented as of this encounter
--- OUTSIDE RECORDS SUMMARY | 2024-03-19 18:19 | XMS_ITS | Encounter Summary ---
[place] [address] Care Team Providers Care Site Medical Director Name Role Phone Olga Kramer MD Primary Care Provider [phone] Encounter Details Date Type Department Care Team (Latest Contact Info) Description 04/03/2012 4:45 PM EST Office [place] [phone] CLINIC, Wendy Maloney APRN Ganglioglioma (Primary Dx) Discharge Disposition: Home Social History Tobacco Use [...] Sign Reading Time Taken Comments Blood Pressure 127/73 04/03/2012 3:44 PM EST Pulse 82 04/03/2012 3:44 PM EST Temperature - - Respiratory Rate - - Oxygen Saturation - - Inhaled Oxygen Concentration - - Weight 90 kg (198 lb 6.4 oz) 04/03/2012 3:44 PM EST Height 162.6 cm (5' 4) 04/03/2012 3:44 PM EST Body Mass Index 34.06 04/03/2012 3:44 PM EST documented in this encounter Progress Notes * Wendy Ojeda APRN - 04/03/2012 6:17 PM EST ACTIVE PROBLEM LIST 1. 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 History of Depression [Onset: Unknown] Isis Rankin return today reporting that she has had no seizures since seen last. She is feeling well. SHe has graduated from college. 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 She is hoping to get back to [facility] soon. She had a MRI today. To my reading it is unchanged from her last scan. Outpatient Prescriptions Marked as Taking for the 04/03/12 encounter (Office Visit) with Wendy Ojeda APRN Medication Sig Dispense Refill ??? ALBUTEROL SULFATE (VENTOLIN HFA INHL) Inhale 2 puffs into the lungs as needed. ??? FLUTICASONE PROPIONATE (FLOVENT HFA INHL) Inhale 2 puffs into the lungs as needed. ??? citalopram (CELEXA) 20 mg tablet Take 60 mg by mouth daily. Physical Exam: Blood pressure 127/73, pulse 82, height 162.6 cm (5' 4), weight 89.994 kg (198 lb 6.4 oz). Awake and alert. Speech clear. Motor 5/5. SERENE intact. Gait steady. Mood is good Impression/Plan:: Isis is doing well. Will await official comparison of her MRI scan but I did not see any recurrence of tumor and only post surgical changes. She remains seizure free. Per Dr. Soares, will have her return in 2 years for MRI and follow up. documented in this encounter Plan of Treatment Not on file documented as of this encounter Visit Diagnoses Diagnosis Ganglioglioma- Primary Neoplasm of uncertain behavior, site unspecified documented in this encounter Care Teams Site Medical Director Relationship Specialty Start Date End Date Olga Kramer MD PCP - General 12/29/09 09/29/14 documented as of this encounter
--- OUTSIDE RECORDS SUMMARY | 2024-03-19 18:19 | XMS_ITS | Encounter Summary ---
Author Organization [facility] [place] [address] Care Team Providers Care Vice President Of Nursing Name Role Phone Olga Kramer MD Primary Care Provider [phone] Encounter Details Date Type Department Care Team (Latest Contact Info) Description 03/12/2010 1:36 PM EST - 03/12/2010 11:59 PM [facility] Hospital Encounter XRay at [address] [place] [address] CLINIC, Kelly Almaraz MD [facility] [place] [address] Discharge Disposition: Home Social History Tobacco Use [...] on filedocumented in this encounter Care Teams Vice President Of Nursing Relationship Specialty Start Date End Date Olga Kramer MD PCP - General 12/29/09 09/29/14 documented as of this encounter
--- OUTSIDE RECORDS SUMMARY | 2024-03-19 18:19 | XMS_ITS ---
Author Organization Unknown Address [address] [place] [phone] Phone Care Team Providers Care Slaughterer Religious Ritual Name Role Phone MELANI Velarde Attending Unavailable Results COMPREHENSIVE METABOLIC PANE L (CMP) - Collect Date/Time: 08/18/2023 10:00 [facility] ID: [id number] [address] [place] [address] LOINC: 85356-6 Test Value Unit Reference Range Code Code System Flag GLUCOSE 75 mg/dL L=70 H=116 2345-7 LOINC BUN 5 mg/dL L=6 H=25 3094-0 LOINC L CREATININE 0.80 mg/dL L=0.51 H=0.95 2160-0 LOINC SODIUM SERUM 136 mmol/L L=136 H=145 2951-2 LOINC POTASSIUM SERUM 4.1 mmol/L L=3.4 H=5.2 2823-3 LOINC CHLORIDE SERUM 102 mmol/L L=96 H=110 2075-0 LOINC CARBON DIOXIDE (CO2) 24 mmol/L L=22 H=34 2028-9 LOINC ANION GAP 10.4 mmol/L 34862-0 LOINC CALCIUM SERUM 8.5 mg/dL L=8.2 H=10.2 61999-3 LOINC BILIRUBIN TOTAL 0.3 mg/dL L=0.0 H=1.3 1975-2 LOINC ALK. PHOS. 89 U/L L=46 H=116 6768-6 LOINC SGOT (AST) 26 U/L L=15 H=37 1920-8 LOINC SGPT (ALT) 37 U/L L=12 H=78 1742-6 LOINC TOTAL PROTEIN 6.6 gm/dL L=6.0 H=8.0 2885-2 LOINC ALBUMIN 3.6 gm/dL L=3.4 H=5.0 1751-7 LOINC AGE 38 years eGFR (non-Afr.Amer.) 81 mL/min 82833-6 LOINC eGFR (Afr-Mozambican) 98 mL/min 83351-0 LOINC CBC W/ DIFFERENTIAL* - Colle ct Date/Time: 08/18/2023 10:00 [facility] ID: [id number] [address] [place], [place], [address] LOINC: 24023-1 Test Value Unit Reference Range Code Code System Flag WBC 5.95 th/cmm L=5.00 H=10.00 6690-2 LOINC NEUT % 61.9 % L=40.0 H=80.0 LYMPH % 29.7 % L=10.0 H=50.0 MONO % 7.2 % L=2.0 H=12.0 72620-3 LOINC EOS % 0.0 % L=0.0 H=8.0 BASO % 0.7 % L=0.0 H=3.0 IG % 0.5 % L=0.0 H=1.1 2514-8 LOINC NRBC % 0.0 % L=0.0 H=0.0 39778-3 LOINC NEUT abs count 3.7 th/cmm L=1.6 H=8.4 751-8 LOINC LYMPH abs count 1.8 th/cmm L=1.5 H=4.0 731-0 LOINC MONO abs count 0.4 th/cmm L=0.2 H=1.0 742-7 LOINC EOS abs count 0.0 th/cmm L=0.0 H=0.5 711-2 LOINC BASO abs count 0.0 th/cmm L=0.0 H=0.2 704-7 LOINC IG abs count 0.0 th/cmm L=0.0 H=0.1 82767-5 LOINC NRBC abs count 0.0 mil/cmm L=0.0 H=0.0 57987-7 LOINC RBC 4.13 mil/cmm L=3.90 H=5.40 789-8 LOINC HEMOGLOBIN 14.1 gm/dL L=12.0 H=16.0 718-7 LOINC HEMATOCRIT 38 % L=37 H=47 4544-3 LOINC MCV 93 fL L=82 H=92 787-2 LOINC H MCH 34.1 pg L=27.0 H=31.0 785-6 LOINC H MCHC 36.8 % L=32.0 H=36.0 786-4 LOINC H RDW-SD 42.6 fL L=39.0 H=49.0 788-0 LOINC PLATELET COUNT 291 th/cmm L=150 H=450 777-3 LOINC Social History Type Status Start Date End Date Code Code Syst em Smoking History Never smoker (Never Smoked) [id number] SNOMED CT Sex Female Hospital Discharge Instructions Should you have any questions prior to discharge, please contact a member of your healthcare team. If you have left the hospital and have any questions, please contact your primary care physician. Reason For Referral No Data Found Allergies and Adverse Reactions Allergy Substance Reaction Severity Start Date Concern Status Co de Code System PENICILLINS (CLASS) Rash (SNOMED-CT: 006421913) Moderate Active Plan of Treatment No Data Found Encounters Encounter Diagnosis Start Date Code Code Sys tem Alcohol dependence, uncomplicated 08/18/2023 SNOMED-CT Personal Care Team Section Performer Name Performer Role Active Date Inactive Da pankaj
--- OUTSIDE RECORDS SUMMARY | 2024-03-19 18:19 | XMS_ITS | Encounter Summary ---
[place] [address] Care Team Providers Care Dean Of Boys Name Role Phone None Primary Care Provider Unavailabl e Encounter Details Date Type Department Care Team (Late st Contact Info) Description 09/30/[address] [place] [address] Elinor Galeas Social History Tobacco Use Types Packs/Day Years [...] on filedocumented in this encounter Care Teams Dean Of Boys Relationship Specialty Start Date End Date None None PCP - General 09/30/14 documented as of this encounter
--- OUTSIDE RECORDS SUMMARY | 2024-03-19 18:19 | XMS_ITS | Encounter Summary ---
[place] [address] Care Team Providers Care Manager Speech Name Role Phone Olga Kramer MD Primary Care Provider [phone] Reason for Visit * Reason Onset Date Comments Other 06/08/2011 Pt would like an MRI done on the same day as follow up Encounter Details Date Type Department Care Team (Late st Contact Info) Description 06/08/2011 [place] [address] Kelly Soares MD [facility] [place] [address] Other (Pt would like an MRI done on the same day as follow up) Social History Tobacco Use Types Packs/Day Years Used Date Smoking Tobacco: Never Assessed Sex and Gender Information Value Date Recorded Sex Assigned at Not on file Gender Identity Not on file Sexual Orientation Not on file documented as of this encounter Miscellaneous Notes * Telephone Encounter - Kiah Randolph - 06/08/2011 3:51 PM EDT Patient has called to request that she be scheduled for an MRI to be done the same day she comes tosee Dr. Soares on 09/26. If this is appropriate please order in e-DH and notify Kiah to schedule. documented in this encounter Plan of Treatment Not on file documented as of this encounter Results * MRI brain with/WO [...] Ganglioglioma Neoplasm of uncertain behavior, site unspecified Ganglioglioma Neoplasm of uncertain behavior, site unspecified documented in this encounter Care Teams Manager Speech Relationship Specialty Start Date End Date Olga Kramer MD PCP - General 12/29/09 09/29/14 documented as of this encounter
[2024-03-19 22:29] LABS: Iron 79 ug/dL (50-170); Total Iron Binding Capacity 217 ug/dL (250-450); Transferrin Sat 36 % (15-50)
[2024-03-19 22:46] LABS: Hemoglobin A1C 5.2 % (<5.7)
[2024-03-19 23:11] LABS: ALT 44 U/L (14-59); AST 23 U/L (15-37); Albumin 3.8 g/dL (3.4-5.0); Alkaline Phosphatase 83 U/L (46-116); Anion Gap 11.3 mmol/L (3-11); BUN 4 mg/dL (7-18); Bilirubin, Total 0.37 mg/dL (0.2-1.0); CO2 23.7 mmol/L (21.0-32.0); CREATININE 0.9 mg/dL (0.55-1.02); Chloride 105 mmol/L (98-107); Estimated GFR 84.97 (mL/min/1.73m2); Ferritin 194 ng/mL (8-252); Glucose 85 mg/dL (74-106); Sodium 140 mmol/L (136-145); Total Protein 7.3 g/dL (6.4-8.2); Vitamin B12 457 pg/mL (193-986); Vitamin D 25 Total 25.8 ng/mL (30-100)
== END 2024-03-19 18:14 | disposition home or self-care (01) ==
LOC: NCHCN 18:13
PROVIDERS: Visit Provider Family Medicine
DX: E53.8 Deficiency of other specified B group vitamins (principal); E55.9 Vitamin D deficiency, unspecified; E61.1 Iron deficiency; Z13.1 Encounter for screening for diabetes mellitus
CPT/HCPCS: 80053; 82306; 82607; 82728; 83036; 83540; 83550